=== PATIENT | male | born 1960 | race Caucasian/White ===

== ENCOUNTER → 2023-07-22 08:02 | Outpatient (REF) | payer BC, SELFPAY | LOC: PAVMRI 08:02 | PROVIDERS: ATTENDING PHYSICIAN Internal Medicine Cardiovascular Disease; FAMILY PHYSICIAN Physician Assistant | DX: R55 Syncope and collapse (principal); R94.39 Abnormal result of other cardiovascular function study; I47.29 Other ventricular tachycardia; I21.9 Acute myocardial infarction, unspecified | CPT/HCPCS: 75561; 75565; A9585 ==

== ENCOUNTER 2023-10-09 10:24 | Day surgery (SDC) | payer BC, SELFPAY ==
[2023-10-09] VITALS (17 sets, daily range): BP systolic 100–170; BP diastolic 67–97; BMI 32.3
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
--- NOTE | 2023-10-09 12:43 | PTCARENOTE ---
Pt recd from [facility] for an ICD. Procedure explained . updated. Pt emotional. Was also informed procedure will be late this afternoon. I moved him to a room with a TV, He his comfortable . ESPERANZA. Urinal at bedside
--- NOTE | 2023-10-09 13:25 | W.ICD.CONTRA ---
Post ICD/TECHNICAL SOURCING RECRUITER-D
-
History of OR?: Yes
LV Function
Left ventricular function study result?: Ejection Fraction >/= 40%
ACEI/ARB/ARNI
Patient already on ACEI/ARB/ARNI: Yes
Beta-Alber
Patient already on Beta Alber: Yes
[2023-10-09] MEDS: TORADOL 30 MG IV (15:05)
--- NOTE | 2023-10-09 15:08 | PTCARENOTE ---
Pt with left middle back pain from fx ribs. BP elevated. Toradol ordered and given IV. Pt repostioned for comfort.
[2023-10-09] MEDS: VANCOCIN 300 ML IV (16:22)
[2023-10-09] MEDS: VANCOCIN 300 MG IV (16:22)
--- NOTE | 2023-10-09 16:26 | PTCARENOTE ---
Pain has improved slightly. With a blanket support patient attempting to cough up some mucous. Unsuccessful at present, encouraged to use incentive spiromter
--- NOTE | 2023-10-09 17:17 | ITS.CL.ICD ---
Civil Engineer - ICD
Implantable Cardioverter Defibrillator
Procedure Report:
Primary Purchasing Expeditor: Harjinder Varghese MD
Procedure Date: 10/09/2023
Name of procedure:
1. Placement of a dual-chamber ICD
2. Subclavian venography
History:
1. A 63 year old male with a past medical history significant for CAD with severe LAD disease with apical LAD infarct with ICM, persistent LV thrombus, LVEF 43% by CMR 06/2023 with improved LVEF 10/08/23 to 50-55%, cardiac arrest with bystander CPR
who presents for ICD implantation for secondary prevention.
2. Please refer to H&P for complete history.
Indication:
Secondary prevention ICD for sudden cardiac
Ischemic cardiomyopathy
Bradycardia with need for AV leif blocking agents/uptitration of goal-directed medical therapy
Methods:
After informed consent was obtained, the patient was brought to the EP laboratory in a postabsorptive, nonsedated state. Peripheral IV access was established. Prophylactic antibiotics were administered prior to incision. Continuous ECG, blood
pressure, and pulse oximetry were initiated. Cardioversion patch electrodes were placed on the patient's chest and back. A grounding patch was applied to the skin. Sedation was administered.
In order to define the extrathoracic portion of the subclavian vein and exclude significant venous obstruction or anomalous anatomy, subclavian venography was performed prior to the procedure. Using the patient's left peripheral IV, contrast was
injected and images were recorded. The left subclavian vein and SVC were found to be widely patent.
The left chest was prepared and draped in a sterile fashion. A time-out was performed. Local anesthesia was injected in the subcutaneous tissue in the infraclavicular area. An incision was made medial to the deltopectoral groove. The subcutaneous
tissue was dissected the level of the prepectoral fascia. A subcutaneous pocket was created. Under fluoroscopic guidance and with the assistance of the images from the venogram, 2 separate venipunctures were made using micropuncture and modified
Seldinger technique. These were performed in the extrathoracic portion of the subclavian vein. Guidewires were passed and two peel-away sheaths were placed, and used to advance leads into the circulation.
Using fluoroscopic guidance, the leads were positioned. The RV lead was advanced to the RV/outflow tract. Ventricular ectopy was recorded. Images were taken in MANCIA and YARON views to ensure appropriate lead placement. The lead tip was subsequently
positioned on the apical septum. Adequate sensing and pacing parameters were found, and no diaphragmatic stimulation was seen with high-output pacing.
Next, the right atrial lead was positioned in the right atrial appendage. Adequate sensing and pacing parameters were found, and no diaphragmatic stimulation was seen with high-output pacing. Both sheaths were split, and the leads were secured to
the fascia with Ethibond ties.
The pocket was flushed with antibiotic solution and hemostasis was assured. The generator was connected to the leads and placed inside the pocket. Antibiotic envelope was used. Surgiflo was applied. The wound was closed with 3 running layers of
absorbable suture, and steri-strips were applied. Dressing applied over steri-strips in standard fashion.
Following the procedure, the patient was taken to the recovery area in stable condition. A chest x-ray to be obtained on admission.
Lead parameters and device programming:
- RA Lead (Callejas, Model 288TC/52, # [id number]): Sensing 3.8 mV, Pacing threshold 1.75 V at 0.4 ms, Imp 510 ohm
- RV Lead (Callejas, Model MLN965L/58, #[id number]): Sensing >12 mV, Pacing threshold 0.5 V at 0.4 ms, Imp 580 ohm, HV imp 60 ohm
- Device: Callejas, [id number] ICD (# [id number]), programmed DDDR, 60-130
- Zones: Monitor 166-181, VT 181�200 with ATP times 3 and shocks, >200 ATP while charging with shocks
Conclusions:
1. Successful placement of a dual-chamber ICD
2. Subclavian venography
Recommendations:
- Admit
- Portable chest x-ray in recovery or room.
- OK to resume home medications as indicated; anticoagulation to resume 6/15 p.m. if site stable in a.m.
- Pressure dressing to be removed in AM, aquacell to remain until wound check
- Follow-up for incision check in the office in 7-10 days post-discharge
Artruo Almodovar DO
Clinical Cardiac [facility]
cc: Harjinder Varghese MD
[2023-10-09] MEDS: COZAAR 50 MG PO (20:41)
[2023-10-09] MEDS: CRESTOR 20 MG PO (22:41)
--- NOTE | 2023-10-09 23:47 | PTCARENOTE ---
Received pt from cath lab tech. L chest wall w/ steri-strips, Aquacel, pressure dressing c/d/i. L arm in immobilizer. EKG obtained. Pt aware of activity restrictions. Pt able to ambulate OOB w/ RN assist. CXR obtained. Pt w/ no c/o at this time. Tele -
SR w/ occ. A-pacing. Currently in bed; call miguel angel w/in reach.
[2023-10-10] MEDS: TYLENOL 650 MG PO ×2 (03:09→09:05)
[2023-10-10 03:15] VITALS: BP 115/76
[2023-10-10 04:13] LABS: Hematocrit 39.2 % (39.0-52.0); Hemoglobin 14.1 g/dL (13.0-18.0); Mean Corpuscular Hgb 31.5 pg (27.0-31.0); Mean Corpuscular Volume 87.5 fL (80.0-94.0); Mean Platelet Volume 8.9 fL (7.4-10.4); Platelet Count 175 10^3/uL (130-400); Red Blood Cell Count 4.48 10^6/uL (4.70-6.10); Red Cell Dist. Width 12.6 % (11.5-14.5)
[2023-10-10 04:34] LABS: Blood Urea Nitrogen 25 mg/dl (9-20); Calcium 9.7 mg/dl (8.4-10.2); Carbon Dioxide 22 mmol/L (22-30); Chloride 105 mmol/L (98-107); Estimated Creatinine Clearance 72 ml/min; Glucose 112 mg/dl (70-99); Potassium 4.5 mmol/L (3.5-5.1); Sodium 137 mmol/L (135-145); eGFR > 60.00
[2023-10-10 07:06] VITALS: BP 126/76
[2023-10-10 07:11] LABS: Glucose - Point of Care 119 mg/dl (70-99)
[2023-10-10] MEDS: ALDACTONE 25 MG PO (09:03)
[2023-10-10] MEDS: COZAAR 50 MG PO (09:03)
[2023-10-10] MEDS: TOPROL XL 25 MG PO (09:03)
[2023-10-10] MEDS: LOW STRENGTH ASPIRIN 81 MG PO (09:03)
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
--- NOTE | 2023-10-10 09:36 | W.DS.TRANS ---
DC Summary - [employer]
-
Discharge Instructions:
Discharge Diagnosis/Procedures ICD implant
Diet Low Cholesterol
Driving Restrictions No driving
Bathing Restrictions OK to Shower
Instructions:
Stand-Alone Forms: DC Inst - Implanted Device
Changes to Home Medications: Yes
Discharge Medications:
DC Medications w/original date entered in [facility]
aspirin 81 mg chewable tablet 81 mg PO DAILY 06/04/22
metoprolol succinate 25 mg tablet,extended release 24 hr 25 mg PO DAILY #0 tabs 06/04/22
spironolactone 25 mg tablet 25 mg PO DAILY #1 tab 06/04/22
apixaban 5 mg tablet (Eliquis) 5 mg PO BID 10/09/23
coenzyme Q10 100 mg capsule (CoQ-10) 100 mg PO HS 10/09/23
losartan 50 mg tablet 50 mg PO BID 10/09/23
rosuvastatin 20 mg tablet 20 mg PO HS 10/09/23
amiodarone 200 mg tablet 200 mg PO BID Arrhythmia #28 tabs 10/10/23
amiodarone 200 mg tablet 200 mg PO DAILY Arrhythmia #30 tabs 10/10/23
Home Medication Changes
New to amiodarone
Pending Results: No
[2023-10-10 11:11] VITALS: BP 125/70
[2023-10-10] MEDS: PACERONE 200 MG PO (11:32)
== END 2023-10-10 12:22 | disposition home or self-care (01) ==
LOC: CATH 10:24
PROVIDERS: Nurse Practitioner; ATTENDING PHYSICIAN Internal Medicine Cardiovascular Disease; FAMILY PHYSICIAN Physician Assistant
DX: I47.20 Ventricular tachycardia, unspecified (principal); I25.5 Ischemic cardiomyopathy; Z86.74 Personal history of sudden cardiac arrest; R00.1 Bradycardia, unspecified; I10 Essential (primary) hypertension; I25.2 Old myocardial infarction; I25.10 Atherosclerotic heart disease of native coronary artery without angina pectoris; Z79.01 Long term (current) use of anticoagulants; R55 Syncope and collapse; Z79.899 Other long term (current) drug therapy; Z79.82 Long term (current) use of aspirin; E78.5 Hyperlipidemia, unspecified; R42 Dizziness and giddiness; Z88.0 Allergy status to penicillin
CPT/HCPCS: 33249; 71045; 80048; 82962; 85027; 93005; C1721; C1895; C1898; Q9967

== ENCOUNTER 2024-09-07 06:11 | Day surgery (SDC) | payer BC, SELFPAY ==
[2024-09-07] VITALS (16 sets, daily range): BP systolic 108–151; BP diastolic 54–87; BMI 32.7
[2024-09-07 06:54] LABS: Hematocrit 44.7 % (39.0-52.0); Hemoglobin 15.8 g/dL (13.0-18.0); Mean Corp Hgb Conc. 35.3 g/dL (33.0-37.0); Mean Corpuscular Hgb 31.8 pg (27.0-31.0); Mean Corpuscular Volume 89.9 fL (80.0-94.0); Mean Platelet Volume 8.6 fL (7.4-10.4); Platelet Count 175 10^3/uL (130-400); Red Blood Cell Count 4.97 10^6/uL (4.70-6.10); Red Cell Dist. Width 12.2 % (11.5-14.5); White Blood Cell Count 7.7 10^3/uL (4.8-10.8)
[2024-09-07] MEDS: LOW STRENGTH ASPIRIN 81 MG PO (06:57)
[2024-09-07] MEDS: NSS 275 ML IV (07:17)
[2024-09-07 07:29] LABS: Blood Urea Nitrogen 25 mg/dl (9-20); Calcium 9.5 mg/dl (8.4-10.2); Carbon Dioxide 24 mmol/L (22-30); Chloride 111 mmol/L (98-107); Estimated Creatinine Clearance 79 ml/min; Glucose 107 mg/dl (70-99); Potassium 4.5 mmol/L (3.5-5.1); Sodium 140 mmol/L (135-145); eGFR > 60.00
[2024-09-07] MEDS: NSS 1000 IV (10:06)
--- NOTE | 2024-09-07 10:09 | ITS.CL.ANGIO ---
Out[facility]older - Angioplasty
Angioplasty
Procedure Report:
LEFT HEART CATHETERIZATION
Date of Procedure: September 07, 2024
Procedures performed:
1: Coronary angiography
2: Left ventricular hemodynamic assessment
3: Percutaneous coronary intervention of the left circumflex with placement of a 3.0 by 18 mm Rahul drug-eluting stent in the first obtuse marginal branch and placement of a 4.0 x 12 mm [place] drug-eluting stent postdilated at high pressure with a 4.5
mm diameter noncompliant balloon in the mid circumflex
4: Percutaneous coronary intervention of the left anterior descending artery with placement of overlapping drug-eluting stents (2.25 x 26 mm overlapping with a 2.25 x 18 mm [place] stents)
Primary Care Physician: Moraima Epps PA-C
Primary Farm Butcher: Dr. Bernie Rowell
INDICATION: The patient is a 64-year-old male with a complex past medical history including a prior LAD infarct with ventricular arrhythmias. He was on amiodarone with ICD placement in 2022 and had no ventricular arrhythmias until recently when
amiodarone was tapered. He has no exertional angina. That said, his ventricular arrhythmias have occurred with activity suspicious for ischemic etiology. He has known dense LAD infarct with diffuse small vessel obstructive disease by cath in 2022
to a collateralized distal LAD. He was on Eliquis chronically for a prior LV thrombus. Eliquis was held for the procedure.
ACCESS: The patient was prepped and draped in usual sterile fashion. A 6 [place] sheath was placed in the right radial artery using the Seldinger over the wire technique.
HEMODYNAMIC FINDINGS (mmHg):
LV(s/d,EDP): 126/16, 24
Ao(s/d,m): 126/73, 93
ANGIOGRAPHIC FINDINGS:
Single-plane Left Ventriculography in MANCIA Projection: Not done.
Coronary Angiography:
Dominance: Left
Left Main: Mild luminal irregularities without significant stenosis.
Left Anterior Descending: The left anterior descending artery is a medium caliber vessel and has diffuse moderate luminal irregularities throughout. The mid LAD has a smooth 40 to 50% stenosis involving the takeoff of the major diagonal branch
which appears unchanged from prior angiography in 2022. Beyond this area of the LAD has a mid 80 to 90% stenosis. The LAD has a 70 to 80% mid stenosis in the distal LAD fills both antegrade as well as via left to left collaterals through a major
septal branch which takes off after the diagonal takeoff. This all appears unchanged from 202.
Left Circumflex: The left circumflex is a large dominant vessel. There is a high first obtuse marginal branch which is patent with mild luminal irregularities and courses in a ramus distribution. The mid circumflex has a new hazy 80% stenosis just
before the takeoff of a large second obtuse marginal branch. The second obtuse marginal branch has a long 60 to 70% stenosis which appears worse compared to angiography also. The distal vessel has VICKI-3 flow. The distal circumflex terminates
into 2 large distal branches that are widely patent with normal flow.
Right Coronary: Not imaged. Nondominant vessel that was patent in 2022.
Percutaneous Coronary Intervention (PCI): In light of the above angiographic findings I elected to proceed with PCI. The patient was pretreated with aspirin and unfractionated heparin was given. A loading dose of clopidogrel 600 mg was given at
the end of the procedure. A 6 [place] XB 3.5 guiding catheter was used to engage the left main. A Hi-Torque floppy wire was advanced across the mid circumflex lesion and into the second obtuse marginal branch. A 2.0 x 15 mm balloon was used to
predilate the mid circumflex lesion. The same balloon was used to then predilate the OM 2 lesion. The OM 2 lesion was stented with a 3.0 x 18 mm [place] drug-eluting stent deployed at 12 demetris. The stent was postdilated with 3.0 x 12 mm noncompliant
balloon inflated to 16 demetris. This was done in a distal proximal fashion taking care to stay within the stented margins. Next, the circumflex lesion was stented with a 4.0 x 12 mm [place] drug-eluting stent. The stent was postdilated with a 4.5 mm
diameter noncompliant balloon at 16 demetris. This was again done in distal to proximal fashion to take care to stay within the stented margins.
FINAL RESULT: 0% in-stent residual stenosis in both the mid circumflex and OM 2 stents with an outstanding angiographic result and VICKI-3 flow in all vessels.
PCI of the LAD: I then turned my attention to the LAD. The Hi-Torque floppy wire was pulled back and redirected towards the LAD. Wiring the small caliber and tortuous LAD was difficult so a 6 [place] Guideliner was used for support as well as to
get better selective imaging of the LAD. Attempts to cross with the Hi-Torque floppy wire were not readily successful. Similarly a Whisper wire would not go. I was concerned there was a dissection so CT surgery was notified however the patient
remained stable without any symptoms. Next, a Fielder XT wire was successfully used to cross the mid LAD disease. Distal intraluminal position was confirmed with a [employer] QuickCross catheter distal injection. In retrospect after later
securing distal wire position there was no evidence of dissection. The Fielder wire was exchanged for a 300 cm Extra [place] wire. Predilation of the long area of disease was performed with a 2.0 x 30 mm balloon. Next, a 2.25 x 26 Rahul
drug-eluting stent was deployed distally. Next a 2.25 x 18 mm Rahul drug-eluting stent was placed more proximally in overlapping fashion. The entire stented segment was postdilated with a 2.25 noncompliant balloon inflated to 16 demetris. This was
again done in a distal to proximal fashion taking care to stay within the stented margins.
FINAL RESULT: 0% in-stent residual stenosis in the overlapping LAD stents with VICKI-3 distal flow in the apical LAD which no longer filled via the collaterals.
Fluoroscopy Time (min): 23
Radiation Dose (mGy): 1430
DAP (Gy.cm2): 83
Closure device: None. A TR band was applied for hemostasis at the right wrist.
Complications: None.
ASSESSMENT:
1: Successful multivessel stenting of the left circumflex and LAD as described above. I highly suspect that the patient's recent symptoms were due to ischemia triggered by the new high-grade disease in the circumflex.
2: Normal left ventricular filling pressures.
CONCLUSIONS and RECOMMENDATIONS:
1: Routine post PCI and post drug-eluting stent medical therapy and monitoring. Given the fact that he is on Eliquis, I will plan to give triple therapy with aspirin 81 mg, clopidogrel 75 mg, and Eliquis 5 mg twice daily for 1 week and then stop
aspirin and continue Eliquis and clopidogrel.
2: Continue amiodarone.
3: Close clinical follow-up with Dr. Cortes Rowell as scheduled.
Jorge Ball M.D.
Copy to: Moraima Epps PA-C
[2024-09-07 11:56] LABS: ACT-LR - POC > 397 Seconds (116-155)
[2024-09-07 11:56] LABS: ACT-LR - POC > 397 Seconds (116-155)
[2024-09-07 11:56] LABS: ACT-LR - POC > 397 Seconds (116-155)
[2024-09-07 11:56] LABS: ACT-LR - POC > 397 Seconds (116-155)
--- NOTE | 2024-09-07 13:13 | W.PN.UPDATE ---
Update Note
Progress Note Update
Pt seen post LAD PCI x2, LCX PCI x1, OM PCI x1, all with KAYLENE. Left radial cath site without ht/bleeding, oob ambulating. Post EKG APaced 50s, no acute changes. Pt will be on triple therapy for 1 week with aspirin, plavix, eliquis. Then will stop
aspirin and remain on plavix/eliquis only. Cardiac rehab consulted. Followup with Dr. Varghese as scheduled. Home later today if cath site/tele remain stable.
== END 2024-09-07 15:30 | disposition home or self-care (01) ==
LOC: CATH 06:11
PROVIDERS: ATTENDING PHYSICIAN Internal Medicine Interventional Cardiology; FAMILY PHYSICIAN Physician Assistant; OTHER PHYSICIAN Internal Medicine Cardiovascular Disease
DX: I25.10 Atherosclerotic heart disease of native coronary artery without angina pectoris (principal); I25.2 Old myocardial infarction; Z79.01 Long term (current) use of anticoagulants; Z79.82 Long term (current) use of aspirin; Z79.02 Long term (current) use of antithrombotics/antiplatelets; Z79.899 Other long term (current) drug therapy
CPT/HCPCS: 80048; 85027; 85347; 93005; 93458; C1725; C1769; C1874; C1894; C9600; C9601; Q9967